=== PATIENT | female | born 1930 | race Caucasian/White ===

== ENCOUNTER 2019-03-10 15:30 | Inpatient (IN) | payer OTHER ==
[~2019-03-10] VITALS: Ht 152.4 cm; Wt 36.9 kg
[2019-03-10 16:54] LABS: BASOPHIL % 0.2 % (0-2); PLATELET COUNT 259 x10^3mcL (130-400); RED CELL DISTRIBUTION WIDTH 13.6 % (11.5-14.5)
[2019-03-10 16:57] LABS: CALCIUM 9.1 mg/dL (8.5-10.1); CARBON DIOXIDE 25.7 mmol/L (21-32); CHLORIDE SERUM 101 mmol/L (98-107); CREATININE SERUM 0.8 mg/dL (0.6-1.0); GLUCOSE SERUM 205 mg/dL (74-106)
[2019-03-10 17:02] LABS: ALKALINE PHOSPHATASE 63 U/L (46-116); ALT/SGPT 22 U/L (14-59); AST/SGOT 18 U/L (15-37); BILIRUBIN TOTAL 0.38 mg/dL (0.20-1.00); TOTAL PROTEIN, SERUM 6.3 g/dL (6.4-8.2)
[2019-03-10 17:23] LABS: POTASSIUM SERUM 3.7 mmol/L (3.5-5.1); SODIUM SERUM 136 mmol/L (136-145)
[2019-03-10 17:28] LABS: ALBUMIN 3.3 g/dL (3.4-5.0)
[2019-03-10 20:56] VITALS: BP 115/51
[2019-03-10 21:04] VITALS: Ht 152.4 cm; Wt 36.9 kg
[2019-03-11 05:35] VITALS: BP 108/60
[2019-03-11 06:35] LABS: BASOPHIL % 0.3 % (0-2); PLATELET COUNT 219 x10^3mcL (130-400); RED CELL DISTRIBUTION WIDTH 13.6 % (11.5-14.5)
[2019-03-11 06:52] LABS: CALCIUM 8.8 mg/dL (8.5-10.1); CARBON DIOXIDE 27.1 mmol/L (21-32); CHLORIDE SERUM 106 mmol/L (98-107); CREATININE SERUM 0.4 mg/dL (0.6-1.0); GLUCOSE SERUM 139 mg/dL (74-106); POTASSIUM SERUM 4.2 mmol/L (3.5-5.1); SODIUM SERUM 141 mmol/L (136-145)
[2019-03-11 07:22] VITALS: BP 122/69
[2019-03-11 11:38] VITALS: BP 100/51
[2019-03-11 15:42] VITALS: BP 110/50
[2019-03-11 19:29] VITALS: BP 99/47
[2019-03-12 04:43] VITALS: BP 111/58
[2019-03-12 07:03] LABS: BASOPHIL % 0.3 % (0-2); PLATELET COUNT 205 x10^3mcL (130-400); RED CELL DISTRIBUTION WIDTH 13.7 % (11.5-14.5)
[2019-03-12 07:08] LABS: CALCIUM 8.2 mg/dL (8.5-10.1); CHLORIDE SERUM 105 mmol/L (98-107); CREATININE SERUM 0.6 mg/dL (0.6-1.0); GLUCOSE SERUM 116 mg/dL (74-106); POTASSIUM SERUM 4.2 mmol/L (3.5-5.1); SODIUM SERUM 141 mmol/L (136-145)
[2019-03-12 12:54] VITALS: BP 104/47
[2019-03-12 16:10] VITALS: BP 104/56
[2019-03-12 21:02] VITALS: BP 102/53
[2019-03-13 05:35] VITALS: BP 109/50
[2019-03-13 05:36] VITALS: BP 99/62
[2019-03-13 08:40] VITALS: BP 110/50; BP 97/53
[2019-03-13 12:00] VITALS: BP 99/42
[2019-03-13 16:11] VITALS: BP 99/46
[2019-03-13 20:50] VITALS: BP 102/46
[2019-03-14 05:45] VITALS: BP 100/54
[2019-03-14 08:29] VITALS: BP 103/48
[2019-03-14 12:50] VITALS: BP 95/42
[2019-03-14] MEDS ORDERED: LEVOFLOXACIN500 M1 PO (15:35)
[2019-03-14 17:09] VITALS: BP 99/49
== END 2019-03-14 19:45 | DRG 480 ==
LOC: ED 15:30 → MU 18:58
PROVIDERS: Emergency Medicine; ADMIT Internal Medicine
PROC: 0QS604Z Reposition Right Upper Femur with Internal Fixation Device, Open Approach (ICD-10-PCS; principal; 2019-03-13)
DX: S72.141A Displaced intertrochanteric fracture of right femur, initial encounter for closed fracture (principal); J96.20 Acute and chronic respiratory failure, unspecified whether with hypoxia or hypercapnia; N17.0 Acute kidney failure with tubular necrosis; N39.0 Urinary tract infection, site not specified; B96.1 Klebsiella pneumoniae [K. pneumoniae] as the cause of diseases classified elsewhere; I10 Essential (primary) hypertension; E11.9 Type 2 diabetes mellitus without complications; M19.90 Unspecified osteoarthritis, unspecified site; W01.0XXA Fall on same level from slipping, tripping and stumbling without subsequent striking against object, initial encounter; Y92.009 Unspecified place in unspecified non-institutional (private) residence as the place of occurrence of the external cause
CPT/HCPCS: 90715; 97116-GP; 97530-GP; G0378; J0690; J0696; J1644; J2175; J2704; J3010; J3490; J7030; J7040; J7060; J7120; Q0092